=== PATIENT | male | born 1995 | race Caucasian/White ===

== ENCOUNTER 2017-11-22 16:20 | Emergency (ER) | payer MEDICAID ==
[~2017-11-22] VITALS: Ht 180.3 cm; Wt 73.0 kg
[2017-11-22] MEDS ORDERED: IBUPROFEN 800MG TABLET PO ONE (16:45)
[2017-11-22] MEDS ORDERED: IBUPROFEN 800MG TABLET PO NR (20:45)
[2017-11-22 21:46] VITALS: BP 109/55
== END 2017-11-22 22:21 | disposition home or self-care (01) ==
LOC: ER 16:32
DX: S42.021A Displaced fracture of shaft of right clavicle, initial encounter for closed fracture (principal); W01.0XXA Fall on same level from slipping, tripping and stumbling without subsequent striking against object, initial encounter; Y93.66 Activity, soccer; Y99.8 Other external cause status; Y92.89 Other specified places as the place of occurrence of the external cause; Z88.0 Allergy status to penicillin
CPT/HCPCS: 71045; 73000; 99284; A4565